=== PATIENT | male | born 1985 | race Caucasian/White ===

== ENCOUNTER 2017-02-13 14:01 | Emergency (ER) | payer SELFPAY ==
[~2017-02-13] VITALS: Ht 180.3 cm; Wt 100.0 kg
[2017-02-13 14:04] VITALS: BP 151/71
== END 2017-02-13 16:31 | disposition left against medical advice (07) ==
LOC: EMS 14:03
DX: R42 Dizziness and giddiness (principal); R11.2 Nausea with vomiting, unspecified; Z53.21 Procedure and treatment not carried out due to patient leaving prior to being seen by health care provider